=== PATIENT | male | born 1960 | race American Indian/Alaskan Native ===

== ENCOUNTER 2017-11-27 18:22 | Emergency (ER) | payer MEDICARE ==
[2017-11-27 19:21] LABS: Basophils % (Auto) 0.6 % (0.0-1.8); Eosinophils # (Auto) 0.1 K/mm3 (0.0-0.4); Eosinophils % (Auto) 2.5 % (0.0-4.3); Hematocrit 41.4 % (35.5-45.6); Hemoglobin 13.6 gm/dl (11.8-15.2); Lymphocytes # (Auto) 2.1 K/mm3 (1.2-5.4); Lymphocytes % (Auto) 42.3 % (13.4-35.0); Mean Corpuscular HGB Conc 33 % (32-34); Mean Corpuscular Hemoglobin 28 pg (28-32); Mean Corpuscular Volume 86 fl (84-94); Monocytes # (Auto) 0.4 K/mm3 (0.0-0.8); Monocytes % (Auto) 8.9 % (0.0-7.3); Platelet Count 223 K/mm3 (140-440); Red Blood Count 4.84 M/mm3 (3.65-5.03); Red Cell Distribution Width 15.2 % (13.2-15.2)
[2017-11-27 19:29] LABS: Calcium 9.4 mg/dL (8.4-10.2)
[2017-11-27 22:39] LABS: Bilirubin,Urine NEG (Negative); Blood,Urine NEG (Negative); Calcium Oxalate Crystals,Urine 3+; Mucus,Urine 3+ /HPF
[2017-11-27 22:40] LABS: Color,Urine Dark Yellow (Yellow)
[2017-11-27 22:48] LABS: Amphetamine Screen,Urine PRESUMPTIVE NEGATIVE; Benzodiazepines Screen,Urine PRESUMPTIVE NEGATIVE; Cannabinoid Screen,Urine PRESUMPTIVE NEGATIVE; Methadone Screen,Urine PRESUMPTIVE NEGATIVE; Opiate Screen,Urine PRESUMPTIVE NEGATIVE
[2017-11-27 22:59] LABS: Cocaine Screen,Urine PRESUMPTIVE POSITIVE
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
--- NOTE | 2017-11-28 03:29 | XRay Report ---
FINAL REPORT EXAM: XR CHEST 1V AP HISTORY: Medical Clearance Psych COMPARISON: None available. FINDINGS: Frontal view(s) of the chest obtained. Cardiac silhouette within normal limits. No gross consolidation or effusion. No pneumothorax. IMPRESSION: No grossly acute findings.
[2017-11-28 03:37] LABS: Bilirubin,Urine NEG (Negative); Blood,Urine NEG (Negative); Color,Urine Yellow (Yellow); Urobilinogen,Urine < 2.0 mg/dL (<2.0)
--- NOTE | 2017-11-28 03:37 | Cat Scan Report ---
FINAL REPORT EXAM: CT HEAD/BRAIN WO CON HISTORY: Medical Clearance Psych COMPARISON: None available. TECHNIQUE: Axial images obtained skull base through vertex. FINDINGS: No acute intracranial hemorrhage, midline shift or pathologic extra axial fluid collection. Ventricles and cisterns are normal in size and configuration for the patient's age. Galdamez-white differentiation preserved. Calvarium grossly intact. Focal calcification the posterior margin right ocular globe compatible with drusen calcification. Benign finding. [id number] mucosal thickening the visualized ethmoid air cells. Visualized mastoid air cells are clear. IMPRESSION: No grossly acute intracranial abnormality.
[2017-11-28 03:48] LABS: Amphetamine Screen,Urine PRESUMPTIVE NEGATIVE; Benzodiazepines Screen,Urine PRESUMPTIVE NEGATIVE; Cannabinoid Screen,Urine PRESUMPTIVE NEGATIVE; Methadone Screen,Urine PRESUMPTIVE NEGATIVE; Opiate Screen,Urine PRESUMPTIVE NEGATIVE
[2017-11-28 04:03] LABS: Cocaine Screen,Urine PRESUMPTIVE POSITIVE
[2017-11-28 08:59] VITALS: BP 128/92
--- NOTE | 2017-11-28 11:44 | Consultation ---
History of Present Illness - Reason for Consult Consult date: 11/28/17 Reason for consult: Mental Health Evaluation Requesting physician: CHEYENNE CHILDERS - Chief Complaint Chief complaint: "I am depressed" - History of Present Psychiatric Illness 57 y.o. AA male presenting to the ER for headache and SI's. Today the patient is calm, cooperative, but withdrawn during the assessment. He stated that his life is "awful' because of his HIV status and the facys he's homeless. He stated being in the [place] area 5 months and its been rough. He stated that he want to kill himself because he feels that he has no reason to live. He stated that he would cut his wrist or overdose if he had the chance. He stated a previous suicide attempt in the past. He stated that he self medicate with recreation drugs (cocaine) to feel better "mentally." He denies HI's and AVH's. He stated that his sleep is erratic with a poor appetite. He denies any manic episodes in the past. He denies alcohol consumption (etoh). Medications and Allergies Allergies Allergy/AdvReac Type Severity Reaction Status Date / Time No Known Allergies Allergy Unverified 11/27/17 18:50 Home Medications Medication Instructions Recorded Confirmed Last Taken Type Atorvastatin [Lipitor Tab] 40 mg PO QHS 11/28/17 11/28/17 Unknown History Citalopram Hydrobromide [celeXA] 20 mg PO QDAY 11/28/17 11/28/17 Unknown History Emtricitabin/Tenofovir [TRUVADA 1 tab PO QDAY 11/28/17 11/28/17 Unknown History 200-300 mg] OLANzapine [ZyPREXA] 2.5 mg PO QDAY 11/28/17 11/28/17 Unknown History amLODIPine [Norvasc] 10 mg PO DAILY 11/28/17 11/28/17 Unknown History Past psychiatric history - Past Medical History Past Medical History: HIV/AIDS Past Surgical History: No surgical history - past Psychiatric treatment and history Psych: Depression psychiatric treatment history: The patient acknowledged seeing a psychiatrist in the past. He denies a fam psy hx. Mental Status Exam - Vital signs Last Vital Signs Temp 98.6 F 11/28/17 08:58 Pulse 69 11/28/17 08:58 Resp 16 11/28/17 09:00 BP 128/92 11/28/17 08:58 Pulse Ox 100 11/28/17 09:00 - Exam Narrative exam: MSE: Appearance: calm, cooperative Behavior: regular eye contact Speech: regular rate and tone Mood: "depressed" withdrawn Affect: congruent to mood Thought Process: circumstantial Thought Content: denies HI's and AVH's Motor Activity: lying in bed Cognition: A/O x 3 Insight: variable Judgment: variable Results Result Diagrams: 11/27/17 18:58 11/27/17 18:58 Abnormal lab results 11/27/17 11/27/17 11/27/17 Range/Units 18:58 18:58 18:58 Lymph % (Auto) 42.3 H (13.4-35.0) % Mathews % (Auto) 8.9 H (0.0-7.3) % Glucose (75-100) mg/dL Salicylates < 0.3 L (2.8-20.0) mg/dL Acetaminophen < 5.0 L (10.0-30.0) ug/mL 11/27/17 11/28/17 11/28/17 Range/Units 18:58 03:15 03:15 Lymph % (Auto) (13.4-35.0) % Mathews % (Auto) (0.0-7.3) % Glucose 103 H (75-100) mg/dL Salicylates < 0.3 L (2.8-20.0) mg/dL Acetaminophen < 5.0 L (10.0-30.0) ug/mL All other labs normal. Assessment and Plan Assessment and plan: Impression: MDD, Severe Type. Substance Use DO (cocaine). Today the patient is calm, cooperative, but withdrawn during the assessment. The patient endorses SI' s with a plan. DDx: R/O Bipolar DO, R/O Substance Induced Mood DO Recommendation/Plan: Continue 1013 with placement to [facility] today.
== END 2017-11-28 12:08 | disposition home or self-care (01) ==
LOC: ED 18:22
DX: G44.329 Chronic post-traumatic headache, not intractable (principal); F32.9 Major depressive disorder, single episode, unspecified; R42 Dizziness and giddiness; F12.10 Cannabis abuse, uncomplicated; Z59.0 Homelessness; Z79.899 Other long term (current) drug therapy
CPT/HCPCS: 36415; 70450; 71045; 80053; 80307; 81001; 84443; 85025; 99285; G0480; 80320